=== PATIENT | female | born 1960 | race Caucasian/White ===

== ENCOUNTER → 2020-11-16 | Outpatient (CLI) | payer OTHER ==
[~2020-11-16] MED LIST: ARMOUR THYROID90 M1 PO; GLUCOSAMINE CH1 EAC7 PO; IBUPROFEN 200200 M1 PO; JUICE PLUS PO; MOBIC15 MG PO; VITAMIN D3400 UNI1 PO; VITAMIN PO
== END ==
LOC: CAT 13:41
PROVIDERS: ATTEND Internal Medicine Cardiovascular Disease
DX: Z13.6 Encounter for screening for cardiovascular disorders (principal); E78.00 Pure hypercholesterolemia, unspecified; I25.10 Atherosclerotic heart disease of native coronary artery without angina pectoris

== ENCOUNTER → 2020-12-29 | Outpatient (CLI) | payer OTHER | LOC: SJCVCIMAG 07:34 | PROVIDERS: ATTEND Internal Medicine Cardiovascular Disease | DX: R07.9 Chest pain, unspecified (principal) ==